=== PATIENT | female | born 1985 | race Two or more races ===

== ENCOUNTER 2021-10-28 10:00 | Outpatient (CLI) | payer OTHER ==
[~2021-10-28 10:00] MED LIST: PROVENTIL HFA6.7 GM IH; PROVENTIL17 G1; PROVENTIL3 ML/2.5 M IH; SINGULAIR10 MG PO; SINGULAIR4 MG/PACKE; SYMBICORT 16010.2 GM; SYMBICORT 16010.2 GM IH
== END 2021-10-28 10:30 | disposition home or self-care (01) ==
LOC: PPH VACUNA 10:00
PROVIDERS: ATTEND Emergency Medicine Pediatric Emergency Medicine
DX: Z23 Encounter for immunization (principal)